=== PATIENT | male | born 1960 | race American Indian/Alaskan Native ===

== ENCOUNTER 2016-10-14 14:20 | Emergency (ER) | payer OTHER ==
[~2016-10-14 14:20] MED LIST: ALENDRONATE SOD70 MG PO; ANUSOL-HC25 MG RC; ASMANEX220 MC2 INH; ASPIR 8181 MG PO; ATIVAN1 MG PO; BACTRIM DS TAB1 EACH PO; BISCOLAX10 MG RC; CEPHALEXIN500 MG PO; CLINDAMYCIN HC300 MG PO; CRESTOR40 MG PO; DILANTIN100 MG PO; DOCUSATE SODIU100 MG PO; DOCUSATE SODIU100 MG PR; DULCOLAX10 MG PR; EFFER-K 20 MEQ20 MEQ PO; EFFEXOR37.5 MG PO; FLEET ENEMA133 ML PR; FOSAMAX70 MG PO; FUROSEMIDE20 MG PO; FUROSEMIDE40 MG PO; GEMFIBROZIL600 MG PO; HYDROCODONE-IB1 EACH PO; IBUPROFEN400 MG PO; IBUPROFEN600 MG PO; IPRAT-ALBUT 0.5-3 ML INH; KEPPRA1000 MG PO; LOFIBRA160 MG PO; MICRO-K10 MEQ PO; MILK OF MA400 MG/5 M PO; MONTELUKAST SOD10 MG PO; MULTI VITAMIN1 EACH PO; NITROSTAT0.4 MG SL; NORCO 5-325 TA1 EACH PO; PHENYTOIN SODI100 MG PO; POTASSIUM CHLO10 MEQ PO; POTASSIUM CHLO20 ME1 PO; PROTONIX40 MG PO; PROVENTIL HFA6.7 GM INH; PULMICORT0.5 MG/2 M INH; QUETIAPINE FUM100 MG PO; QVAR7.3 G1 INH; SEROQUEL100 MG PO; SEROQUEL200 MG PO; SINGULAIR10 MG PO; TRAMADOL HCL50 MG PO; ULTRAM50 MG PO; VENLAFAXINE HCL75 M2 PO; VICOPROFEN 2001 EACH PO; VITAMIN D35000 UNI1 PO; ZOCOR40 MG PO; ZOFRAN ODT4 MG PO
[2016-10-14] MEDS ORDERED: KEPPRA500 MG PO (15:20)
[2016-10-14] MEDS ORDERED: ZONEGRAN100 MG PO (15:26)
== END 2016-10-14 17:53 | disposition home or self-care (01) ==
LOC: ED 14:20
PROC: 0HQ1XZZ Repair Face Skin, External Approach (ICD-10-PCS; principal; 2016-10-14)
DX: S01.81XA Laceration without foreign body of other part of head, initial encounter (principal); R56.9 Unspecified convulsions; F17.200 Nicotine dependence, unspecified, uncomplicated; F32.9 Major depressive disorder, single episode, unspecified; F41.9 Anxiety disorder, unspecified; E78.5 Hyperlipidemia, unspecified; J44.9 Chronic obstructive pulmonary disease, unspecified; W07.XXXA Fall from chair, initial encounter; Z88.0 Allergy status to penicillin; Z88.8 Allergy status to other drugs, medicaments and biological substances; Z79.899 Other long term (current) drug therapy; Z79.891 Long term (current) use of opiate analgesic
CPT/HCPCS: 12011; 96372; 99282; J2250

== ENCOUNTER 2016-10-17 15:59 | Emergency (ER) | payer OTHER ==
[~2016-10-17 15:59] MED LIST changes: +KEPPRA500 MG PO; +ZONEGRAN100 MG PO
== END 2016-10-17 16:59 | disposition home or self-care (01) ==
LOC: ED 15:59
DX: S60.222A Contusion of left hand, initial encounter (principal); J44.9 Chronic obstructive pulmonary disease, unspecified; E78.5 Hyperlipidemia, unspecified; F20.9 Schizophrenia, unspecified; E66.9 Obesity, unspecified; W19.XXXA Unspecified fall, initial encounter
CPT/HCPCS: 73130; 99283

== ENCOUNTER 2018-01-09 21:15 | Emergency (ER) | payer OTHER ==
[~2018-01-09] VITALS: Ht 167.6 cm; Wt 90.7 kg
--- OUTSIDE RECORDS SUMMARY | ~2018-01-09 | XMS | Clinical Summary ---
Demographics + + + | Address | [address] [place] [address] | | | [place] [address] | + + + | Home Phone | | + + + | Preferred Language | Unknown | + + + | Marital Status | Single | + + + | Yazidi Affiliation | Unknown | + + + | Race | Unknown | + + + | Ethnic Group | Unknown | + + + Author + + + | Author | [facility] | + + + | Organization | [facility] | + + + | Address | Unknown | + + + | Phone | Unavailable | + + + Support + + +---------+ + | Name | Relationship | Address | Phone | + + +---------+ + | Liliane Henry | ECON | Unknown | | + + +---------+ + Care Team Providers + +------+ + | Care Tamping Machine Operator Name | Role | Phone | + +------+ + | Tulio Ireland DO | PP | | + +------+ + Allergies + + + + + + | Active Allergy | Reactions | Severity | Noted | Comments | | | | | Date | | + + + + + + | Acetaminophen | Hallucinations | Medium | 11/18/19 | | | | | | 16 | | + + + + + + | Penicillins | Other (See Comments) | Medium | 09/29/19 | Unknown | | | | | 17 | | + + + + + + Current Medications + + +-------+---------+------+------+-------+ | Prescription | Sig. | Disp. | Refills | Star | End | Statu | | | | | | t | Date | s | | | | | | Date | | | + + +-------+---------+------+------+-------+ | aspirin 81 MG | Take 81 mg by mouth | | | | | Activ | | tablet | daily. | | | | | e | + + +-------+---------+------+------+-------+ | docusate sodium | Take 100 mg by mouth | | | | | Activ | | (COLACE) 100 MG | 2 (two) times daily | | | | | e | | capsule | as needed. | | | | | | + + +-------+---------+------+------+-------+ | bisacodyl | Place 10 mg rectally | | | | | Activ | | (DULCOLAX) 10 MG | once. | | | | | e | | suppository | | | | | | | + + +-------+---------+------+------+-------+ | venlafaxine | Take 150 mg by mouth | | | | | Activ | | (EFFEXOR-XR) 150 MG | daily with | | | | | e | | 24 hr capsule | breakfast. | | | | | | + + +-------+---------+------+------+-------+ | sodium phosphate | Place 1 enema | | | | | Activ | | (FLEET) enema | rectally once. | | | | | e | | | follow package | | | | | | | | directions | | | | | | + + +-------+---------+------+------+-------+ | alendronate | Take 70 mg by mouth | | | | | Activ | | (FOSAMAX) 70 MG | every 7 days. Take | | | | | e | | tablet | in the morning with | | | | | | | | a full glass of | | | | | | | | water, on an empty | | | | | | | | stomach, and do not | | | | | | | | take anything else | | | | | | | | by mouth or lie down | | | | | | | | for the next 30 | | | | | | | | min. | | | | | | + + +-------+---------+------+------+-------+ | ibuprofen (MOTRIN) | Take 600 mg by mouth | | | | | Activ | | 600 MG tablet | every 8 (eight) | | | | | e | | | hours as needed for | | | | | | | | Pain. | | | | | | + + +-------+---------+------+------+-------+ | furosemide (LASIX) | Take 20 mg by mouth | | | | | Activ | | 20 MG tablet | 2 (two) times daily. | | | | | e | + + +-------+---------+------+------+-------+ | Magnesium | Take 30 mLs by | | | | | Activ | | Hydroxide (MILK OF | mouth. | | | | | e | | MAGNESIA PO) | | | | | | | + + +-------+---------+------+------+-------+ | Multiple | Take by mouth. | | | | | Activ | | Vitamins-Minerals | | | | | | e | | (MULTIVITAMIN PO) | | | | | | | + + +-------+---------+------+------+-------+ | nitroGLYCERIN | Place 0.4 mg under | | | | | Activ | | (NITROSTAT) 0.4 MG | the tongue every 5 | | | | | e | | SL tablet | (five) minutes as | | | | | | | | needed for Chest | | | | | | | | pain. | | | | | | + + +-------+---------+------+------+-------+ | | Take 2 tablets by | | | | | Activ | | HYDROcodone-acetamin | mouth every 4 (four) | | | | | e | | ophen (NORCO) 5-325 | hours as needed for | | | | | | | MG per tablet | Pain. | | | | | | + + +-------+---------+------+------+-------+ | potassium chloride | Take 20 mEq by mouth | | | | | Activ | | (KLOR-CON) 20 MEQ | daily. | | | | | e | | packet | | | | | | | + + +-------+---------+------+------+-------+ | beclomethasone | Inhale 1 puff into | | | | | Activ | | (QVAR) 40 MCG/ACT | the lungs 2 (two) | | | | | e | | inhaler | times daily. | | | | | | + + +-------+---------+------+------+-------+ | quetiapine | Take 150 mg by mouth | | | | | Activ | | (SEROQUEL) 200 MG | nightly. | | | | | e | | tablet | | | | | | | + + +-------+---------+------+------+-------+ | simvastatin | Take 40 mg by mouth | | | | | Activ | | (ZOCOR) 40 MG tablet | nightly. | | | | | e | + + +-------+---------+------+------+-------+ | montelukast | Take 10 mg by mouth | | | | | Activ | | (SINGULAIR) 10 MG | every morning. | | | | | e | | tablet | | | | | | | + + +-------+---------+------+------+-------+ | traMADol (ULTRAM) | Take 50 mg by mouth | | | | | Activ | | 50 MG tablet | 3 (three) times | | | | | e | | | daily as needed for | | | | | | | | Pain. | | | | | | + + +-------+---------+------+------+-------+ | ondansetron | Take 4 mg by mouth 3 | | | | | Activ | | (ZOFRAN) 4 MG tablet | (three) times daily | | | | | e | | | as needed for | | | | | | | | Nausea. | | | | | | + + +-------+---------+------+------+-------+ | omeprazole | Take 20 mg by mouth | | | | | Activ | | (PRILOSEC) 20 MG | every morning before | | | | | e | | capsule | breakfast. | | | | | | + + +-------+---------+------+------+-------+ | pantoprazole | Take 40 mg by mouth | | | | | Activ | | (PROTONIX) 40 MG | every morning before | | | | | e | | tablet | breakfast. | | | | | | + + +-------+---------+------+------+-------+ | albuterol | Inhale 2 puffs into | | | | | Activ | | (PROVENTIL | the lungs every 4 | | | | | e | | HFA;VENTOLIN HFA) | (four) hours as | | | | | | | 108 (90 BASE) | needed for Wheezing. | | | | | | | MCG/ACT inhaler | | | | | | | + + +-------+---------+------+------+-------+ | Cholecalciferol | Take 5,000 Units by | | | | | Activ | | 5000 UNITS capsule | mouth daily. | | | | | e | + + +-------+---------+------+------+-------+ | LORazepam (ATIVAN) | Take 1 mg by mouth | | | | | Activ | | 1 MG tablet | daily as needed for | | | | | e | | | Anxiety. | | | | | | + + +-------+---------+------+------+-------+ | zonisamide | Take 400 mg by mouth | | | | | Activ | | (ZONEGRAN) 100 MG | daily. | | | | | e | | capsule | | | | | | | + + +-------+---------+------+------+-------+ Active Problems + + + | Problem | Noted Date | + + + | Syncope | 09/28/2016 | + + + | Schizophrenia (HCC) | | + + + | Seizure disorder (HCC) | | + + + Encounters +--------+---------+ + + + | Date | Type | Specialty | Care Team | Description | +--------+---------+ + + + | 12/20/ | Office | | Seferino Beasley, | Seizure disorder | | 2018 | Visit | | MD | (HCC) (Primary Dx) | +--------+---------+ + + + from Last 3 Months Family History + + +------+ + | Medical History | Relation | Name | Comments | + + +------+ + | Alcohol abuse | Mother | | | + + +------+ + | Cancer | Neg Hx | | | + + +------+ + | Diabetes type II | Neg Hx | | | + + +------+ + + +------+ + + | Relation | Name | Status | Comments | + +------+ + + | Brother | | Alive | | + +------+ + + | Brother | | Alive | | + +------+ + + | Father | | | | + +------+ + + | Mother | | | | + +------+ + + | Sister | | Alive | | + +------+ + + Social History + +-------+ +--------+ + | Tobacco Use | Types | Packs/Day | Years | Date | | | | | Used | | + +-------+ +--------+ + | Former Smoker | | | | Quit: 11/17/2014 | + +-------+ +--------+ + + +---+---+---+ | Smokeless Tobacco: | | | | | Never Used | | | | + +---+---+---+ + + | Tobacco Cessation: Counseling Given: No | + + + + +---------+ + | Alcohol Use | Drinks/We | oz/Week | Comments | | | ek | | | + + +---------+ + | No | 0 | 0.0 | | | | Standard | | | | | drinks or | | | | | | | | | | equivalen | | | | | t | | | + + +---------+ + + + + | Sex Assigned at | Date Recorded | | | | + + + | Not on file | | + + + Last Filed Vital Signs + + + + | Vital Sign | Reading | Time Taken | + + + + | Blood Pressure | 113/76 | 12/20/2017 12:39 PM PDT | + + + + | Pulse | 67 | 12/20/2017 12:39 PM PDT | + + + + | Temperature | 37.2 C (98.9 F) | 04/15/2016 10:25 AM PST | + + + + | Respiratory Rate | 18 | 04/15/2016 12:33 PM PST | + + + + | Oxygen Saturation | 95% | 12/20/2017 12:39 PM PDT | + + + + | Inhaled Oxygen | - | - | | Concentration | | | + + + + | Weight | 84.4 kg (186 lb) | 12/20/2017 12:39 PM PDT | + + + + | Height | 167.6 cm (5' 6") | 12/20/2017 12:39 PM PDT | + + + + | Body Mass Index | 30.02 | 12/20/2017 12:39 PM PDT | + + + + Plan of Treatment +--------+---------+ + + + | Date | Type | Specialty | Care Team | Description | +--------+---------+ + + + | 06/19/ | Office | | Seferino Beasley, | | | 2018 | Visit | | MD Tien Jones | | | | | | [place], [place] | | | | | | [address] | | | | | | | | +--------+---------+ + + + + + + + + | Health Maintenance | Due Date | Last Done | Comments | + + + + + | Vaccine: | | | | | Dtap/Tdap/Td (1 - | 8 | | | | Tdap) | | | | + + + + + | Colon Cancer | | | | | Screening | 9 | | | | (Colonoscopy) | | | | + + + + + | Vaccine: Influenza | | | | | (#1) | 8 | | | + + + + + Results Not on filefrom Last 3 Months Insurance + +--------+ +------+-------+ + | Payer | Benefi | Subscriber | Type | Phone | Address | | | t Plan | ID | | | | | | / | | | | | | | Group | | | | | + +--------+ +------+-------+ + | MEDICAID | MEDICA | [id number] | | | [address] | | | ID | | | | [place] | | | [place] | | | | [address] | + +--------+ +------+-------+ + | /[employer] [facility] | YELLOW | [id number] | | | | | PLANS | [place] | | | | | + +--------+ +------+-------+ + + +--------+ +--------+ + + | Guarantor Name | Accoun | Relation to | Date | Phone | Billing Address | | | t Type | Patient | of | | | | | | | | | | + +--------+ +--------+ + + | HOANG ELLIS | Person | Self | [birth year] | Work: | [address] | | | [address]even/Mo | | [phone] | [place] [address] | | | grace | | | [phone] | | + +--------+ +--------+ + +
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
--- OUTSIDE RECORDS SUMMARY | ~2018-01-09 | XMS | Encounter Summary ---
Demographics + + + | Address | [address] [place] [address] | | | [place] [address] | + + + | Home Phone | | + + + | Preferred Language | Unknown | + + + | Marital Status | Single | + + + | Caodaism Affiliation | Unknown | + + + | Race | Unknown | + + + | Ethnic Group | Unknown | + + + Author + + + | Author | [facility] | + + + | Organization | [facility] | + + + | Address | Unknown | + + + | Phone | Unavailable | + + + Support + + +---------+ + | Name | Relationship | Address | Phone | + + +---------+ + | Liliane Henry | ECON | Unknown | | + + +---------+ + Care Team Providers + +------+ + | Care Rubber Mixer Name | Role | Phone | + [...] MD Seferino | | | | | ([facility]) | [address] | | | | | | [address] | [address] | | | | | | [address] | Drive | | | | | | [place] | [facility] [place] | | | | | | [address] | [address] Phone: | | | | | | Phone: | [phone] | | | | | | [phone] | Fax: | | | | | | Fax: | [phone] | | | | | | [phone] | | + +--------+ + + + + Encounter Details +--------+---------+ + + + | Date | Type | Department | Care Team | Description | +--------+---------+ + + + | 12/20/ | Office | [facility] | Seferino Beasley, | Seizure disorder | | 2018 | Visit | [facility] | [address] | ([facility]) (Primary Dx) | | | | [address] | [address] [facility] | | | | | [place] | [address] | | | | | [address] | | | | | | [phone] | | | +--------+---------+ + + + [...] his relocation. He is a resident at [facility] in [place]. He is accompanied by his caregiver Deann [...] | | | | | | Drive [place], [place] | | | | | | [phone] | | | | | | | | +--------+---------+ + + + as of this encounter Visit Diagnoses + + | Diagnosis | + + | Seizure disorder (HCC) - Primary | + + | Unspecified epilepsy without mention of intractable epilepsy | + +
--- OUTSIDE RECORDS SUMMARY | ~2018-01-09 | XMS | Clinical Summary ---
Demographics + + + | Address | [address] [place] [address] | | | [place] [address] | + + + | Home Phone | | + + + | Preferred Language | Unknown | + + + | Marital Status | Single | + + + | Protestant Affiliation | Unknown | + + + | Race | Unknown | + + + | Ethnic Group | Unknown | + + + Author + + + | Author | [facility] | + + + | Organization | [facility] | + + + | Address | Unknown | + + + | Phone | Unavailable | + + + Support + + +---------+ + | Name | Relationship | Address | Phone | + + +---------+ + | iLliane Henry | ECON | Unknown | | + + +---------+ + Care Team Providers + +------+ + | Care Associate School Psychologist Name | Role | Phone | + [...] | | | | | | [place], [place] | | | | | | [address] | | | | | | | [...] +------+-------+ + | MEDICAID | MEDICA | [id number] | | | [address] | | | ID | | | | [place] | | | [place] | | | | [address] | + +--------+ +------+-------+ + | /[employer] [facility] | YELLOW | [id number] | | | | | PLANS | [...] [phone] | [place] [address] | | | [place] | | | [phone] | | + +--------+ +--------+ + +
--- OUTSIDE RECORDS SUMMARY | 2018-01-09 21:20 | XMS ---
PreManage Notification: KD ELLIS Security Aerosol Line Operator Events No recent Security Events currently on file CRITERIA MET - Group Notification CARE PROVIDERS There are no care providers on record at this time. Stan has no Care Guidelines for this patient. Keshawn VISIT COUNT (12 MO.) 1 KIMMY Storey TOTAL 1 NOTE: Visits indicate total known visits. ED/C VISIT TRACKING (12 MO.) 01/09/2018 21:15 KIMMY Chong [place] TYPE: Emergency COMPLAINT: - SEIZURE INPATIENT VISIT TRACKING (12 MO.) No inpatient visits to display in this time frame [email or web address]
[2018-01-09] MEDS ORDERED: ATIVAN1 MG PO (21:45)
[2018-01-09] MEDS ORDERED: FLEET ENEMA133 ML PR (21:46)
[2018-01-09] MEDS ORDERED: DULOXETINE HCL60 MG PO (21:46)
[2018-01-09] MEDS ORDERED: GABAPENTIN100 MG PO (21:52)
[2018-01-09] MEDS ORDERED: ZONISAMIDE100 MG PO (21:53)
[2018-01-09] MEDS ORDERED: ULTRAM50 MG PO (21:54)
== END 2018-01-10 01:12 | disposition home or self-care (01) ==
LOC: ED 21:15
DX: R56.9 Unspecified convulsions (principal); Z87.442 Personal history of urinary calculi; F03.90 Unspecified dementia, unspecified severity, without behavioral disturbance, psychotic disturbance, mood disturbance, and anxiety; F32.9 Major depressive disorder, single episode, unspecified; Z87.891 Personal history of nicotine dependence; Z88.0 Allergy status to penicillin; Z88.6 Allergy status to analgesic agent; Z79.899 Other long term (current) drug therapy; Z79.82 Long term (current) use of aspirin
CPT/HCPCS: 80053; 81001; 82542; 85025; 99285

== ENCOUNTER → 2018-06-13 | Emergency (ER) | payer OTHER ==
[~2018-06-13] VITALS: Ht 167.6 cm; Wt 90.7 kg
[~2018-06-13] MED LIST changes: +ARNUITY ELLIP100 MCG; +DULOXETINE HCL60 MG PO; +GABAPENTIN100 MG PO; +ZONISAMIDE100 MG PO
--- OUTSIDE RECORDS SUMMARY | 2018-06-13 06:12 | XMS ---
PreManage Notification: KD ELLIS Security Demand Planner Events No recent Security Events currently on file CRITERIA MET - Group Notification - PDMP CARE PROVIDERS Marlyn Richards Arch Cushion Skiving Machine Operator/Ethylene Oxide Panelboard Operator 04/18/2017-Current PHONE: [phone] JOSE CASPER Family Medicine: Sports Medicine 01/10/2018-Current PHONE: Unknown Marlyn Richards Primary Care 04/18/2017-Current PHONE: [phone] Stan has no Care Guidelines for this patient. E.D. VISIT COUNT (12 MO.) 2 KIMMY Storey TOTAL 2 NOTE: Visits indicate total known visits. ED/UCC VISIT TRACKING (12 MO.) 06/13/2018 06:10 KIMMY Chong [place] TYPE: Emergency COMPLAINT: - GLF/HEAD LAC 01/09/2018 21:15 KIMMY Chong [place] TYPE: Emergency COMPLAINT: - SEIZURE DIAGNOSES: - Personal history of nicotine dependence - Unspecified convulsions - Allergy status to penicillin - local intermodal truck driver (current) use of aspirin - Major depressive disorder, single episode, unspecified - Personal history of urinary calculi - Allergy status to analgesic agent status - Unspecified dementia without behavioral disturbance - Other meterman (current) drug therapy INPATIENT VISIT TRACKING (12 MO.) No inpatient visits to display in this time frame [id number]
== END ==
LOC: ED 06:10
DX: S01.01XA Laceration without foreign body of scalp, initial encounter (principal); W18.30XA Fall on same level, unspecified, initial encounter; Z87.891 Personal history of nicotine dependence; F03.90 Unspecified dementia, unspecified severity, without behavioral disturbance, psychotic disturbance, mood disturbance, and anxiety; F20.9 Schizophrenia, unspecified; F32.9 Major depressive disorder, single episode, unspecified; E78.5 Hyperlipidemia, unspecified; E66.9 Obesity, unspecified; Z88.0 Allergy status to penicillin; Z88.8 Allergy status to other drugs, medicaments and biological substances; Z79.899 Other long term (current) drug therapy; Z79.82 Long term (current) use of aspirin
CPT/HCPCS: 90471; 90715; 99283-25

== ENCOUNTER 2022-07-27 09:56 | Emergency (ER) | payer OTHER ==
[~2022-07-27] VITALS: Ht 167.6 cm; Wt 81.7 kg
--- OUTSIDE RECORDS SUMMARY | 2022-07-27 09:59 | XMS ---
PreManage Notification: KD ELLIS Security Leaf Sucker Operator Events No recent Security Events currently on file CRITERIA MET - Group Notification - PDMP CARE PROVIDERS -, Anup- Dentist: Brazing Machine Operator [facility] PHONE: [phone] DOREEN ADDISON Commodities Manager: Foot \T\ Ankle Surgery Current PHONE: [phone] ARTI SHIELDS Commodities Manager Lacey Bonilla PHONE: [phone] ERIN MORIN Internal Medicine Current PHONE: [phone] ELIZABETH NAVA Nurse Practitioner Current PHONE: [phone] KEVIN MCCARTY Nurse Practitioner: Family Current PHONE: Unknown [facility] Internal Medicine Current PHONE: [phone] MICHAEL HARDIN Nurse Practitioner Current PHONE: [phone] NICKY DALTON I. Physician On Site Construction Superintendent Current PHONE: Unknown ILDEFONSO MORAN Nurse Practitioner: Family Current PHONE: [phone] TREMAYNE BABB [facility] 01/10/2018-Current PHONE: Unknown NEGRITO JENKINS Nurse Practitioner Current PHONE: Unknown ROSEMARIE PIZARRO Nurse Practitioner Current DAYO PHONE: [phone] ALYSSA Nurse Practitioner Lacey MARY PHONE: [phone] LESLEY [facility] Current PHONE: Unknown [facility] PHONE: [phone] MURTAZA CHRISTIE Nurse Practitioner: Family Current PHONE: Unknown CODY SHEIKH Physician Current PHONE: Unknown Stan has no Care Guidelines for this patient. E.Merle VISIT COUNT (12 MO.) 1 KIMMY Storey TOTAL 1 NOTE: Visits indicate total known visits. ED/UCC VISIT TRACKING (12 MO.) 07/27/2022 09:56 [facility]IMMY Chong [place] TYPE: Emergency COMPLAINT: - SEIZURE INPATIENT VISIT TRACKING (12 MO.) No inpatient visits to display in this time frame [email or web address]
[2022-07-27] MEDS ORDERED: KEPPRA1000 MG PO (10:15)
[2022-07-27] MEDS ORDERED: KEPPRA750 MG PO (10:15)
== END 2022-07-27 13:00 ==
LOC: ED 09:56
DX: G40.909 Epilepsy, unspecified, not intractable, without status epilepticus (principal); F03.90 Unspecified dementia, unspecified severity, without behavioral disturbance, psychotic disturbance, mood disturbance, and anxiety; E78.5 Hyperlipidemia, unspecified; E66.9 Obesity, unspecified; Z87.891 Personal history of nicotine dependence; Z88.0 Allergy status to penicillin; Z88.6 Allergy status to analgesic agent; Z79.899 Other long term (current) drug therapy; Z79.82 Long term (current) use of aspirin
CPT/HCPCS: A9270-GY

== ENCOUNTER 2023-02-28 15:40 | Emergency (ER) | payer OTHER ==
[~2023-02-28] VITALS: Ht 167.6 cm; Wt 81.7 kg
[~2023-02-28 15:40] MED LIST changes: +CYMBALTA60 MG PO; +KEPPRA750 MG PO; +LIPITOR80 MG GT
--- OUTSIDE RECORDS SUMMARY | 2023-02-28 15:42 | XMS ---
PreManage Notification: KD ELLIS Security Cooling System Operator Events No recent Security Events currently on file CRITERIA MET - Group Notification - PDMP CARE PROVIDERS Marlyn Richards Tractor Operator Helper/Charrer 03/18/2022-Current PHONE: [phone] TREMAYNE BABB [facility] 01/10/2018-Current PHONE: Unknown -Anup- Dentist: Advertising Sales Representative [facility] PHONE: [phone] MATT ROWELL Nurse Practitioner: Family Current PHONE: [phone] DOREEN ADDISON Paper Machine Backtender: Foot \T\ Ankle Surgery Current PHONE: [phone] ARTI SHIELDS Paper Machine Backtender Lacey Bonilla PHONE: [phone] ERIN MORIN Internal Medicine Current PHONE: [phone] GURJIT CEJA Nurse Practitioner: Family Current PHONE: [phone] ELIZABETH NAVA Nurse Practitioner Current PHONE: [phone] KEVIN MCCARTY Nurse Practitioner: Family Current PHONE: Unknown [facility] Internal Medicine Current PHONE: [phone] MICHAEL HARDIN Nurse Practitioner: Family Current PHONE: [phone] NICKY DALTON I. Physician Employment Service Specialist Current PHONE: Unknown ILDEFONSO MORAN Nurse Practitioner: Psychiatric/Mental Health Current PHONE: [phone] NEGRITO JENKINS Nurse Practitioner Current PHONE: Unknown ROSEMARIE PIZARRO Nurse Junie OSHEA PHONE: [phone] ALYSSA Nurse Junie MARY PHONE: [phone] [facility] Current PHONE: Unknown [facility] Current PHONE: [phone] MURTAZA CHRISTIE Nurse Practitioner: Family Current PHONE: [phone] CODY SHEIKH Physician Employment Service Specialist Current PHONE: Unknown Stan has no Care Guidelines for this patient. Keshawn VISIT COUNT (12 MO.) 3 KIMMY Storey TOTAL 3 NOTE: Visits indicate total known visits. ED/C VISIT TRACKING (12 MO.) 02/28/2023 15:41 KIMMY Chong [place] TYPE: Emergency COMPLAINT: - SEIZURE 11/26/2022 14:17 KIMMY Chong [place] TYPE: Emergency COMPLAINT: - FALL DIAGNOSES: - Acquired absence of right leg below knee - Allergy status to penicillin - Cervicalgia - Collapsed vertebra, not elsewhere classified, lumbar region, initial encounter for fracture - Collapsed vertebra, not elsewhere classified, thoracic region, initial encounter for fracture - Fall on same level, unspecified, initial encounter - Obesity, unspecified - Other prison (current) drug therapy - Sprain of ligaments of cervical spine, initial encounter - Sprain of unspecified site of left knee, initial encounter - Unspecified dementia, unspecified severity, without behavioral disturbance, psychotic disturbance, mood disturbance, and anxiety 07/27/2022 09:[address] [facility] [place] TYPE: Emergency COMPLAINT: - SEIZURE DIAGNOSES: - Allergy status to analgesic agent - Allergy status to penicillin - Epilepsy, unspecified, not intractable, without status epilepticus - Hyperlipidemia, unspecified - terminal computer operator (current) use of aspirin - Obesity, unspecified - Other exterminator termite (current) drug therapy - Personal history of nicotine dependence - Unspecified dementia, unspecified severity, without behavioral disturbance, psychotic disturbance, mood disturbance, and anxiety INPATIENT VISIT TRACKING (12 MO.) No inpatient visits to display in this time frame [id number]
[2023-02-28] MEDS ORDERED: ZONISAMIDE100 MG PO (15:52)
[2023-02-28 17:07] VITALS: BP 132/81
== END 2023-02-28 17:08 | disposition home or self-care (01) ==
LOC: ED 15:40
DX: S01.01XA Laceration without foreign body of scalp, initial encounter (principal); F03.90 Unspecified dementia, unspecified severity, without behavioral disturbance, psychotic disturbance, mood disturbance, and anxiety; E66.9 Obesity, unspecified; W19.XXXA Unspecified fall, initial encounter; Z66 Do not resuscitate; Z88.0 Allergy status to penicillin; Z88.8 Allergy status to other drugs, medicaments and biological substances; Z79.899 Other long term (current) drug therapy
CPT/HCPCS: 12002; 99283

== ENCOUNTER 2023-09-08 20:26 | Emergency (ER) | payer OTHER ==
--- OUTSIDE RECORDS SUMMARY | 2023-09-08 20:28 | XMS ---
PreManage Notification: KD ELLIS Security Chipper Events No recent Security Events currently on file CRITERIA MET - Group Notification CARE PROVIDERS SusieMarlyn Installation Superintendent/Ecommerce Manager 08/17/2023-Current PHONE: [phone] TREMAYNE BABB [facility] 01/10/2018-Current PHONE: Unknown -[facility] Dentist: Metal Fitters And Machinists [facility] Anup PHONE: [phone] -Anup- Dentist: Metal Fitters And Machinists [facility] PHONE: [phone] MATT ROWELL Nurse Practitioner: Family Current PHONE: [phone] DOREEN ADDISON Welder Assembler: Foot \T\ Ankle Surgery Current PHONE: [phone] ARTI SHIELDS Welder Assembler Current PA Bonilla PHONE: [phone] ERIN MORIN Internal Medicine Current PHONE: [phone] GURJIT CEJA Nurse Practitioner: Family Current PHONE: [phone] ELIZABETH NAVA Nurse Practitioner Current PHONE: [phone] KEVIN MCCARTY Nurse Practitioner: Family Current PHONE: [phone] [facility] Internal Medicine Current PHONE: [phone] MICHAEL HARDIN Nurse Practitioner: Family Current PHONE: [phone] NICKY DALTON I. Physician Bar Tender Current PHONE: Unknown ILDEFONSO MORAN Nurse Practitioner: Psychiatric/Mental Health Current PHONE: [phone] NEGRITO JENKINS Nurse Practitioner Current PHONE: Unknown ROSEMARIE PIZARRO Nurse Practitioner Lacey OSHEA PHONE: [phone] ALYSSA Nurse Junie MARY PHONE: [phone] [facility] Current PHONE: Unknown SVETLANA [facility] Current PHONE: [phone] MURTAZA CHRISTIE Nurse Practitioner: Family Current PHONE: Unknown CODY SHEIKH Current PHONE: Unknown Stan has no Care Guidelines for this patient. Keshawn VISIT COUNT (12 MO.) 3 KIMMY Storey TOTAL 3 NOTE: Visits indicate total known visits. ED/UCC VISIT TRACKING (12 MO.) 09/08/2023 20:27 [facility] [place] TYPE: Emergency COMPLAINT: - POSS STROKE 02/28/2023 15:41 [facility] [place] TYPE: Emergency COMPLAINT: - SEIZURE DIAGNOSES: - Allergy status to other drugs, medicaments and biological substances - Allergy status to penicillin - Do not resuscitate - Laceration without foreign body of scalp, initial encounter - Obesity, unspecified - Other senior care (current) drug therapy - Unspecified dementia, unspecified severity, without behavioral disturbance, psychotic disturbance, mood disturbance, and anxiety - Unspecified fall, initial encounter 11/26/2022 14:[address] [facility] [place] TYPE: Emergency COMPLAINT: - FALL DIAGNOSES: - Acquired absence of right leg below knee - Allergy status to penicillin - Cervicalgia - Collapsed vertebra, not elsewhere classified, lumbar region, initial encounter for fracture - Collapsed vertebra, not elsewhere classified, thoracic region, initial encounter for fracture - Fall on same level, unspecified, initial encounter - Obesity, unspecified - Other ferry terminal supervisor (current) drug therapy - Sprain of ligaments of cervical spine, initial encounter - Sprain of unspecified site of left knee, initial encounter - Unspecified dementia, unspecified severity, without behavioral disturbance, psychotic disturbance, mood disturbance, and anxiety INPATIENT VISIT TRACKING (12 MO.) No inpatient visits to display in this time frame [id number]
[2023-09-08] MEDS ORDERED: IBLOOD GLUCOSE TEST STRIP 1 EA TEST XX ONE (20:30)
[2023-09-08 21:16] LABS: BASOPHILS 0.7 % (0-2); EOSINOPHILS 7.9 % (0-6); HEMATOCRIT 38.4 % (35.0-50.0); MCH 30.5 (27-36); MCHC 33.8 g/dl (30-36); MCV 90.3 fl (81-99); NEUTROPHILS 54.4 % (39-80); PLATELET COUNT 177 K/uL (140-440); RBC 4.25 M/ul (4.3-5.7); RDW 14.9 (10.5-15.0)
[2023-09-08 21:57] LABS: ALBUMIN 2.8 g/dL (3.4-5.0); ALBUMIN/GLOBULIN RATIO 0.7 (1.1-2.4); BILIRUBIN, TOTAL 0.4 ng/dL (0.2-1.0); BUN/CREATININE RATIO 13.59 (6.0-28.6); CREATININE, SERUM 1.03 mg/dL (0.70-1.30); PROTEIN, TOTAL 6.8 g/dL (6.4-8.2)
[2023-09-08 22:10] LABS: PARTIAL THROMBOPLASTIN TIME 31.4 Sec (22.9-41.3)
[2023-09-08 22:12] LABS: INR 1.11 (0.80-1.30); PROTIME 13.6 Sec (11.2-14.2)
[2023-09-08] MEDS ORDERED: levETIRAcetam 500 MG/5 ML VIAL IV ONE (23:30)
[2023-09-08 23:56] VITALS: BP 124/76
--- NOTE | 2023-09-09 14:06 | EKG ---
[facility] [address] [facility] [place] [address] Signed Normal sinus rhythm Right superior axis deviation Nonspecific T wave abnormality , low voltage QRS Abnormal ECG When compared with ECG of 26-JUL-2016 20:37, No significant change was found Confirmed by Connie Fernandez ([id number]) on 09/09/2023 2:06:29 PM Electronically Signed By: CONNIE FERNANDEZ MD 09/09/23 1406 PATIENT NAME: RHONDAKDABIGAIL MENDEZ Electrocardiogram DATE OF : 56 PHYSICIAN: CONNIE FERNANDEZ MD REPORT #: [id number] REPORT IS CONFIDENTIAL AND NOT TO BE RELEASED WITHOUT AUTHORIZATION
== END 2023-09-09 00:05 | disposition home or self-care (01) ==
LOC: ED 20:26
PROVIDERS: Family Medicine
DX: S06.9XAA Unspecified intracranial injury with loss of consciousness status unknown, initial encounter (principal); R56.9 Unspecified convulsions; W01.10XA Fall on same level from slipping, tripping and stumbling with subsequent striking against unspecified object, initial encounter; E78.5 Hyperlipidemia, unspecified; E66.9 Obesity, unspecified; Z88.0 Allergy status to penicillin; Z88.8 Allergy status to other drugs, medicaments and biological substances; Z79.899 Other long term (current) drug therapy
CPT/HCPCS: 36415; 70450; 70496; 70498; 72125; 80053; 80307; 84484; 85025; 85610; 85730; 93005; 93010; 96374; 99285-25; J1953; Q9967

== ENCOUNTER 2024-06-22 19:45 | Emergency (ER) | payer OTHER ==
[~2024-06-22] VITALS: Ht 167.6 cm; Wt 89.0 kg
--- OUTSIDE RECORDS SUMMARY | 2024-06-22 19:52 | XMS ---
PreManage Notification: KD ELLIS Security French Translator Events No recent Security Events currently on file CRITERIA MET - Group Notification CARE PROVIDERS SusieMarlyn Commercial Loan Closer/Cable Systems Installer 04/18/2024-Current PHONE: [phone] TREMAYNE BABB [facility] 01/10/2018-Current PHONE: Unknown -[facility] Dentist: Diesel Engine Assembler [facility] Anup PHONE: [phone] -Anup- Dentist: Diesel Engine Assembler [facility] PHONE: [phone] MATT ROWELL Nurse Practitioner: Family Current PHONE: [phone] DOREEN ADDISON Certified Flex Endoscope Reprocessor: Foot \T\ Ankle Surgery Current PHONE: [phone] ARTI SHIELDS Certified Flex Endoscope Reprocessor Current PA Bonilla PHONE: [phone] ERIN MORIN Internal Medicine Current PHONE: Unknown GURJIT CEJA Nurse Practitioner: Family Current PHONE: [phone] ELIZABETH NAVA Nurse Practitioner Current PHONE: [phone] TONO IRVIN Physician Methane Gas Collection System Operator Lacey APONTE PHONE: [phone] KEVIN MCCARTY Nurse Practitioner: Family Current PHONE: [phone] MIGUEL A GA Nurse Practitioner: Adult Health Lacey DAYTON PHONE: [phone] [facility] Internal Medicine Current PHONE: [phone] MICHAEL HARDIN Nurse Practitioner: Family Current PHONE: [phone] NICKY DALTON I. Physician Methane Gas Collection System Operator Current PHONE: Unknown ILDEFONSO MORAN Nurse Practitioner: Psychiatric/Mental Health Current PHONE: [phone] NEGRITO JENKINS Nurse Practitioner Current PHONE: Unknown ROSEMARIE PIZARRO Nurse Practitioner Lacey OSHEA PHONE: [phone] ALYSSA Nurse Practitioner Current TERRY USMAN PHONE: [phone] [facility] Current PHONE: Unknown BERKLEY MOTA Family [facility] Current PHONE: Unknown MURTAZA CHRISTIE Nurse Practitioner: Family Current PHONE: Unknown CODY SHEIKH Physician Methane Gas Collection System Operator Current PHONE: Unknown Stan has no Care Guidelines for this patient. ESteveDSteve VISIT COUNT (12 MO.) 3 KIMMY Storey TOTAL 3 NOTE: Visits indicate total known visits. ED/UCC VISIT TRACKING (12 MO.) 06/22/2024 19:46 KIMMY Chong [place] TYPE: Emergency COMPLAINT: - FALL 01/02/2024 11:53 KIMMY Chong [place] TYPE: Emergency COMPLAINT: - FALL DIAGNOSES: - Abrasion of other part of head, initial encounter - Allergy status to other drugs, medicaments and biological substances - Allergy status to penicillin - Chronic obstructive pulmonary disease, unspecified - Fall from bed, initial encounter - Other termite renewal inspector (current) drug therapy 09/08/2023 20:27 KIMMY Chong [place] TYPE: Emergency COMPLAINT: - POSS STROKE DIAGNOSES: - Allergy status to other drugs, medicaments and biological substances - Allergy status to penicillin - Fall on same level from slipping, tripping and stumbling with subsequent striking against unspecified object, initial encounter - Hyperlipidemia, unspecified - Obesity, unspecified - Other termite renewal inspector (current) drug therapy - Unspecified convulsions - Unspecified intracranial injury with loss of consciousness status unknown, initial encounter INPATIENT VISIT TRACKING (12 MO.) No inpatient visits to display in this time frame [id number]
[2024-06-23 07:26] VITALS: BP 120/74
== END 2024-06-23 07:30 | disposition home or self-care (01) ==
LOC: ED 19:45
DX: M25.552 Pain in left hip (principal); F03.90 Unspecified dementia, unspecified severity, without behavioral disturbance, psychotic disturbance, mood disturbance, and anxiety; F20.9 Schizophrenia, unspecified; W05.0XXA Fall from non-moving wheelchair, initial encounter; Z88.8 Allergy status to other drugs, medicaments and biological substances; Z88.0 Allergy status to penicillin; Z79.899 Other long term (current) drug therapy; Y92.129 Unspecified place in nursing home as the place of occurrence of the external cause
CPT/HCPCS: 73502; 99283

== ENCOUNTER 2024-06-30 09:42 | Emergency (ER) | payer OTHER ==
[~2024-06-30] VITALS: Ht 167.6 cm; Wt 70.0 kg
--- OUTSIDE RECORDS SUMMARY | 2024-06-30 09:48 | XMS ---
PreManage Notification: KD ELLIS Security Insulation Hoseman Events No recent Security Events currently on file CRITERIA MET - Group Notification - [facility] - 2 Visits in 30 Days CARE PROVIDERS Marlyn Richards Cardiopulmonary Technician And Eeg Tech/Taker Down 04/18/2024-Current PHONE: [phone] TREMAYNE BABB [facility] 01/10/2018-Current PHONE: Unknown -[facility] Dentist: Change Advisor [facility] PHONE: [phone] -Anup- Dentist: Change Advisor Current [facility] PHONE: [phone] MATT ROWELL Nurse Practitioner: Family Current PHONE: [phone] DOREEN ADDISON Structural Steel Worker: Foot \T\ Ankle Surgery Current PHONE: [phone] ARTI SHIELDS Structural Steel Worker Lacey Bonilla PHONE: [phone] ERIN MORIN Internal Medicine Current PHONE: Unknown GURJIT CEJA Nurse Practitioner: Family Current PHONE: [phone] ELIZABETH NAVA Nurse Practitioner Current PHONE: [phone] TONO IRVIN Physician Aircraft Mechanic Electrical And Radio Lacey APONTE PHONE: [phone] KEVIN MCCARTY Nurse Practitioner: Family Current PHONE: [phone] MIGUEL A GA Nurse Practitioner: Adult Health Lacey SERRANO PHONE: [phone] [facility] Internal Medicine Current PHONE: [phone] MICHAEL HARDIN Nurse Practitioner: Family Current PHONE: [phone] NICKY DALTON I. Physician Aircraft Mechanic Electrical And Radio Current PHONE: Unknown ILDEFONSO MORAN Nurse Practitioner: Psychiatric/Mental Health Current PHONE: [phone] NEGRITO JENKINS Nurse Practitioner Current PHONE: Unknown ROSEMARIE PIZARRO Nurse Practitioner Lacey OSHEA PHONE: [phone] ALYSSA Nurse Practitioner Lacey MARY PHONE: [phone] LESLEY [facility] Current PHONE: Unknown BERKLEY MOTA [facility] Current PHONE: Unknown MURTAZA CHRISTIE Nurse Practitioner: Family Current PHONE: Unknown SHEIKH, CODY Physician Aircraft Mechanic Electrical And Radio Current PHONE: Unknown Stan has no Care Guidelines for this patient. Keshawn VISIT COUNT (12 MO.) 4 KIMMY Storey TOTAL 4 NOTE: Visits indicate total known visits. ED/UCC VISIT TRACKING (12 MO.) 06/30/2024 09:43 [facility]IMMY Chong [place] TYPE: Emergency COMPLAINT: - ALTERED MENTAL STATUS 06/22/2024 19:46 [facility]IM[facility]ong [place] TYPE: Emergency COMPLAINT: - FALL DIAGNOSES: - Allergy status to other drugs, medicaments and biological substances - Allergy status to penicillin - Fall from non-moving wheelchair, initial encounter - Other fpc (current) drug therapy - Pain in left hip - Schizophrenia, unspecified - Unspecified dementia, unspecified severity, without behavioral disturbance, psychotic disturbance, mood disturbance, and anxiety - Unspecified place in fdc as the place of occurrence of the external cause 01/02/2024 11:53 KIMMY Chong [place] TYPE: Emergency COMPLAINT: - FALL DIAGNOSES: - Abrasion of other part of head, initial encounter - Allergy status to other drugs, medicaments and biological substances - Allergy status to penicillin - Chronic obstructive pulmonary disease, unspecified - Fall from bed, initial encounter - Other fpc (current) drug therapy 09/08/2023 20:27 KIMMY Chong [place] TYPE: Emergency COMPLAINT: - POSS STROKE DIAGNOSES: - Allergy status to other drugs, medicaments and biological substances - Allergy status to penicillin - Fall on same level from slipping, tripping and stumbling with subsequent striking against unspecified object, initial encounter - Hyperlipidemia, unspecified - Obesity, unspecified - Other fpc (current) drug therapy - Unspecified convulsions - Unspecified intracranial injury with loss of consciousness status unknown, initial encounter INPATIENT VISIT TRACKING (12 MO.) No inpatient visits to display in this time frame [id number]
[2024-06-30 11:32] VITALS: BP 106/71
== END 2024-06-30 11:32 | disposition home or self-care (01) ==
LOC: ED 09:42
DX: S09.90XA Unspecified injury of head, initial encounter (principal); F03.90 Unspecified dementia, unspecified severity, without behavioral disturbance, psychotic disturbance, mood disturbance, and anxiety; E78.5 Hyperlipidemia, unspecified; Z66 Do not resuscitate; Z89.511 Acquired absence of right leg below knee; Z88.0 Allergy status to penicillin; Z88.6 Allergy status to analgesic agent; Z79.899 Other long term (current) drug therapy; W05.0XXA Fall from non-moving wheelchair, initial encounter
CPT/HCPCS: 99283